=== PATIENT | male | born 1955 | race Caucasian/White ===

== ENCOUNTER 2016-10-24 15:30 | Inpatient (IN) | payer OTHER ==
[~2016-10-24] VITALS: Ht 182.9 cm; Wt 81.6 kg
--- NOTE | ~2016-10-24 | HC ---
[facility] [place] [address] CONSULTATION Name: PAYTON GONZALEZ Room #: 538-P ADM IN M.R.#: [id number] Admission: 10/24/16 Attend Phys: Lavon Torres Discharge: Date of : 59 Report #: [id number] THIS REPORT FOR: //name// CC: Denver Allen REASON FOR CONSULTATION: Was asked to evaluate concerning left great toe infection. HISTORY OF PRESENT ILLNESS: The patient was a 61-year-old with peripheral vascular disease and peripheral neuropathy, who noted increased pain and swelling along with erythema involving the distal aspect of his left first toe. He denies any specific trauma. He has had some oozing from beneath the nail. He does have onychomycosis. No fever, chills or sweats. Because of his increased pain, he was evaluated in the Emergency Room. There x-ray showed oblique ____ fracture of the proximal medial aspect of the distal phalanx to the great toe with osteoarthritis noted. No definite osteomyelitis. He had a previous history of MRSA infection of his right first and second toes several years ago. REVIEW OF SYSTEMS: Notes no cardiopulmonary, GI or complaints. ALLERGIES: None. MEDICATIONS: As noted on his MAR, which was reviewed including his vancomycin. PAST MEDICAL HISTORY: Coronary artery disease, status post [place] and stents, hypertension, peripheral neuropathy, peripheral vascular disease with right SFA stent, osteomyelitis of the right great toe MRSA. FAMILY HISTORY: Noncontributory. SOCIAL HISTORY: He is a smoker of cigarettes. No significant alcohol intake. PHYSICAL EXAMINATION: VITAL SIGNS: Afebrile, hemodynamically stable. GENERAL: He is alert and cooperative and pleasant, in no acute distress. HEENT: Unremarkable. CHEST: Clear. HEART: Regular. ABDOMEN: Soft. EXTREMITIES: Pulses in the left foot were normal. Sensation was diminished distally. Distally, he had some hyperesthesia involving his toes. SKIN: Evidence of onychomycosis. The left first toenail was a thickened and bit raise. There was some debris beneath the nail with evidence of some dry crusted drainage. Erythema extending from the distal most aspect of the toe to the mid shaft region. Yesterday, he reported that the erythema extended up into his foot. There was significant tenderness to this region. There was [address] [address] CONSULTATION Name: PAYTON GONZALEZ Room #: 538-P [facility] IN .R.#: [id number] Admission: 10/24/16 Attend Phys: Lavon Torres Discharge: Date of : 59 Report #: [id number] reasonable capillary refill to the distal tissues. LABORATORY STUDIES: Hemoglobin 12.5, white count 8.5. Differential unremarkable, platelet count 170,000, sodium 138, potassium 3.3, bicarbonate 29, creatinine 0.9. Liver function test normal. Urinalysis unremarkable. MRSA screen is pending. Blood cultures are pending. IMPRESSION: Left first toe soft tissue infection and paronychia. I suspect with possible deep infection beneath the nail. I suspect he had trauma initiating this considering as a fracture of the medial proximal and distal phalanx. RECOMMENDATION: Continue both gram negative and MRSA coverage and have podiatry evaluate for debridement of the nail. <ELECTRONICALLY SIGNED> By: Nghia Allen MD 10/26/16 1027 1127 [id number] Nghia Allen MD /nt
--- NOTE | ~2016-10-24 | H ---
[facility] [place] [address] HISTORY AND PHYSICAL Name: PAYTON GONZALEZ Room #: 538-P ADM IN M.R.#: [id number] Admission: 10/24/16 Attend Phys: Lavon Torres Discharge: Date of : 59 Report #: [id number] THIS REPORT FOR: //name// CC: Denver Allen ATTENDING PHYSICIAN: Dr. Denver Allen. CHIEF COMPLAINT: Left big toe and foot swelling with redness. HISTORY OF PRESENT ILLNESS: The patient is a 61-year-old gentleman who presented to the emergency room with complaints of having left foot pain. The patient reports that his symptoms started the night before his presentation and had gotten worse. He initially started having some discomfort in his toenail. He noticed redness of the big toe, which had spread over his foot into his ankle. He was having increasing pain and discomfort. The patient does have a history of severe peripheral neuropathy for which he has been on high doses of morphine tablets. The patient also had a previous infection on his right foot requiring hospitalization with IV antibiotics for MRSA infection. The patient is currently admitted to the hospital and started on IV vancomycin. He denied having any fever or chills. PAST MEDICAL HISTORY: Significant for history of severe peripheral neuropathy, coronary artery disease, MRSA infection of the right foot, hypertension and osteomyelitis of the right great toe with MRSA in May 2014. PAST SURGICAL HISTORY: Coronary stent placement, tonsillectomy and peripheral vascular angioplasty. ALLERGIES: He is not known to be allergic to medications. MEDICATIONS: He was currently on was hydrocodone 10/325 one every 8 hours p.r.n., methadone 10 mg 3 times a day and lisinopril 20 mg daily, Plavix 75 mg daily, atorvastatin 80 mg daily, aspirin 81 mg daily. SOCIAL HISTORY: He does not smoke, does not drink alcohol. REVIEW OF SYSTEMS: He denied any chest pain, shortness of breath, cough, fever, nausea, vomiting, abdominal pain or any chills. PHYSICAL EXAMINATION: GENERAL: Pleasant elderly gentleman was resting in bed, did not appear to be in any distress. He was awake, alert, oriented to place and person. VITAL SIGNS: She was afebrile with temperature of 36.6, pulse of 54, respiratory rate 18, blood pressure 111/68, oxygen saturation 95%. HEENT: Skull was atraumatic. There was no pallor, no icterus. Mucosa was moist. NECK: Supple. [facility] [address] [place] [address] HISTORY AND PHYSICAL Name: PAYTON GONZALEZ Room #: 538-P [facility] IN [facility].#: [id number] Admission: 10/24/16 Attend Phys: Lavon Torres Discharge: Date of : 59 Report #: [id number] LUNGS: Clear to auscultation bilaterally with no wheezing or crackles. HEART: Heart sounds, first and second, normal. ABDOMEN: Soft, nontender, bowel sounds normally heard. EXTREMITIES: The patient had left great toe swelling with redness and there was deformity of the toenail and there was minimal edema of the dorsum of the foot, pedal pulses were 1+ symmetrical. LABORATORY DATA: On admission showed a white cell count of 8.5, hemoglobin 12.5 and a platelet count of 170. Electrolytes showed a sodium of 138, potassium 3.3, chloride 104, bicarbonate of 29, BUN of 10, creatinine of 0.9 and glucose was 141, total bilirubin of 0.5. Urine was evidence of trace blood was seen. X-ray of the big toe showed evidence of small oblique fracture of the distal phalanx of the great toe on the left side. There was evidence of osteoarthritis. ASSESSMENT: 1. Left big toe with foot cellulitis questionable secondary to methicillin-resistant staphylococcus aureus. 2. Severe peripheral neuropathy. 3. Chronic pain syndrome. 4. Coronary artery disease. 5. Hypertension. PLAN: Continue on current medications on the IV antibiotics, vancomycin and have infectious disease consultation. By: 1040 [id number] Mert Bustamante MD /nt
[2016-10-24 15:30] VITALS: BP 146/90
[~2016-10-24 15:30] MED LIST: ANTIBIOTIC; ASA81BEC PO; DAILY VITAMIN1 EAC5 PO; DOLOPHINE HCL5 MG PO; DULOXETINE HCL30 MG PO; FISH OIL 1,001000 M1 PO; HYDROCODON-ACE1 EAC5 PO; LIPITOR80 MG PO; LISINOPRIL20 MG PO; LISINOPRIL40 MG PO; LOPRESSOR50 PO; MEPILEX1 EACH TOP; METHADONE HCL 110 M1 PO; METHADONE HCL5 MG PO; METOPROLOL SUCC50 MG PO; OXYCONTIN40 MG PO; PLAVIX 75 MG TA75 M1 PO; POTASSIUM; POTASSIUM PO; STOOL SOFTENER100 M1 PO; TEGRETOL XR100 MG PO; VANCOMYCIN1.5 GM/150 IV
[2016-10-24 16:34] LABS: ABSOLUTE NEUTROPHILS 8.2 thou/uL (1.4-8.2); BASOPHILS 0.8 % (0.0-2.0); EOSINOPHILS 3.1 % (0.0-3.0); HEMATOCRIT 39.3 % (42.0-52.0); HEMOGLOBIN 13.5 gm/dL (14.0-18.0); LYMPHOCYTES 18.4 % (24.0-44.0); MCH 32.3 pg (26.0-34.0); MCHC 34.4 g/dL (28.0-37.0); MCV 93.8 fL (80.0-100.0); MONOCYTES 6.3 % (1.0-8.0); PLATELET COUNT 200 thou/uL (150-400); POLYS 71.4 % (36.0-66.0); RBC 4.19 mil/uL (4.50-6.00); RDW 13.9 % (10.5-14.5); WBC 11.5 thou/uL (4.0-11.0)
[2016-10-24 16:39] LABS: MANUAL DIFF NO
[2016-10-24 16:43] LABS: CALCIUM 8.9 mg/dL (8.5-10.1); CREATININE 0.9 mg/dL (0.7-1.3)
[2016-10-24 16:47] LABS: DIRECT BILIRUBIN 0.1 mg/dL (<0.1-0.3); TOTAL BILIRUBIN 0.7 mg/dL (<0.1-1.0); TOTAL PROTEIN 8.1 g/dL (6.4-8.2)
[2016-10-24 19:37] LABS: URINE BILIRUBIN NEGATIVE (Negative); URINE BLOOD TRACE (Negative); URINE COLOR YELLOW; URINE GLUCOSE-RANDOM* NEGATIVE (Negative); URINE KETONES NEGATIVE (Negative); URINE NITRITE NEGATIVE (Negative); URINE PROTEIN (DIPSTICK) NEGATIVE (Negative)
[2016-10-24 19:51] VITALS: BP 142/87
[2016-10-25 03:35] LABS: HEMATOCRIT 36.3 % (42.0-52.0); HEMOGLOBIN 12.5 gm/dL (14.0-18.0); MCHC 34.4 g/dL (28.0-37.0); MCV 93.1 fL (80.0-100.0); RBC 3.9 mil/uL (4.50-6.00); RDW 14.1 % (10.5-14.5); WBC 8.5 thou/uL (4.0-11.0)
[2016-10-25 03:44] LABS: ALBUMIN 3.3 g/dL (3.4-5.0); CALCIUM 8.1 mg/dL (8.5-10.1); CREATININE 0.9 mg/dL (0.7-1.3); POTASSIUM 3.3 mmol/L (3.5-5.1); TOTAL BILIRUBIN 0.5 mg/dL (<0.1-1.0); TOTAL PROTEIN 6.8 g/dL (6.4-8.2)
[2016-10-25 07:35] VITALS: BP 111/68
[2016-10-25 15:30] VITALS: BP 102/61
[2016-10-25 19:30] VITALS: BP 126/70
[2016-10-26 06:40] VITALS: BP 116/79
[2016-10-26 08:37] VITALS: BP 131/81
[2016-10-26 16:00] VITALS: BP 124/67
[2016-10-26 19:15] VITALS: BP 144/69
[2016-10-27] VITALS (7 sets, daily range): BP systolic 115–136; BP diastolic 68–70
[2016-10-27 07:19] LABS: CALCIUM 8.5 mg/dL (8.5-10.1); CREATININE 0.9 mg/dL (0.7-1.3); POTASSIUM 3.9 mmol/L (3.5-5.1)
[2016-10-27] MEDS ORDERED: CUBICIN500 MG IVPB (09:26)
[2016-10-27] MEDS ORDERED: FLOMAX0.4 MG PO (09:26)
[2016-10-27] MEDS ORDERED: INVANZ1 G1 IV (09:55)
[2016-10-28] MEDS ORDERED: LOPRESSOR50 PO (10:04)
== END 2016-10-27 12:55 | disposition home health service (06) | DRG 603 ==
LOC: ER 15:30 → EROBS 17:35 → 5S 17:35
PROVIDERS: Internal Medicine Geriatric Medicine; Nurse Practitioner
PROC: 05H633Z Insertion of Infusion Device into Left Subclavian Vein, Percutaneous Approach (ICD-10-PCS; principal; 2016-10-26)
PROC: B547ZZA Ultrasonography of Left Subclavian Vein, Guidance (ICD-10-PCS; principal; 2016-10-26)
DX: L03.032 Cellulitis of left toe (principal); I10 Essential (primary) hypertension; F17.210 Nicotine dependence, cigarettes, uncomplicated; I73.9 Peripheral vascular disease, unspecified; G89.4 Chronic pain syndrome; I25.10 Atherosclerotic heart disease of native coronary artery without angina pectoris; G62.9 Polyneuropathy, unspecified; I25.2 Old myocardial infarction; Z95.5 Presence of coronary angioplasty implant and graft; Z79.899 Other long term (current) drug therapy; Z90.49 Acquired absence of other specified parts of digestive tract; Z86.14 Personal history of Methicillin resistant Staphylococcus aureus infection
CPT/HCPCS: 10086; 27001

== ENCOUNTER → 2016-10-28 | Outpatient (CLI) | payer OTHER ==
[~2016-10-28] MED LIST changes: +CUBICIN500 MG IVPB; +FLOMAX0.4 MG PO; +INVANZ1 G1 IV
[2016-10-28 09:00] VITALS: BP 126/71
== END ==
LOC: OPONC 06:57
DX: L03.116 Cellulitis of left lower limb (principal)
CPT/HCPCS: 95000

== ENCOUNTER → 2016-10-29 | Outpatient (CLI) | payer OTHER ==
[2016-10-29 10:00] VITALS: BP 106/63
[2016-10-29 10:04] LABS: HEMATOCRIT 36.9 % (42.0-52.0); HEMOGLOBIN 12.8 gm/dL (14.0-18.0); MCH 32.5 pg (26.0-34.0); MCHC 34.8 g/dL (28.0-37.0); MCV 93.5 fL (80.0-100.0); RBC 3.94 mil/uL (4.50-6.00); RDW 13.8 % (10.5-14.5); WBC 8.2 thou/uL (4.0-11.0)
[2016-10-29 10:17] LABS: CALCIUM 8.3 mg/dL (8.5-10.1); POTASSIUM 3.6 mmol/L (3.5-5.1)
== END ==
LOC: OPONC 06:17
PROVIDERS: Specialist
DX: L03.116 Cellulitis of left lower limb (principal)
CPT/HCPCS: 95000

== ENCOUNTER → 2016-10-30 | Outpatient (CLI) | payer OTHER ==
[2016-10-30 10:47] VITALS: BP 124/64
== END ==
LOC: OPONC 06:17
DX: L03.116 Cellulitis of left lower limb (principal)
CPT/HCPCS: 95000

== ENCOUNTER → 2016-10-31 | Outpatient (CLI) | payer OTHER ==
[~2016-10-31] MED LIST changes: +AUGMENTIN 875875 MG PO
== END ==
LOC: OPONC 10-29 08:36
DX: L03.116 Cellulitis of left lower limb (principal)
CPT/HCPCS: 95000

== ENCOUNTER → 2016-11-01 | Outpatient (CLI) | payer OTHER | LOC: OPONC 09:50 | DX: L03.116 Cellulitis of left lower limb (principal) | CPT/HCPCS: 95000 ==

== ENCOUNTER → 2016-11-02 | Outpatient (CLI) | payer OTHER | LOC: OPONC 12:45 | DX: L03.116 Cellulitis of left lower limb (principal) | CPT/HCPCS: 95000 ==

== ENCOUNTER → 2016-11-03 | Outpatient (CLI) | payer OTHER ==
[2016-11-03 09:33] LABS: HEMATOCRIT 38.8 % (42.0-52.0); HEMOGLOBIN 13.2 gm/dL (14.0-18.0); MCH 31.7 pg (26.0-34.0); MCHC 33.9 g/dL (28.0-37.0); MCV 93.6 fL (80.0-100.0); RBC 4.14 mil/uL (4.50-6.00); RDW 13.8 % (10.5-14.5); WBC 8.7 thou/uL (4.0-11.0)
[2016-11-03 09:54] LABS: ALBUMIN 3.7 g/dL (3.4-5.0); CALCIUM 8.7 mg/dL (8.5-10.1); POTASSIUM 3.7 mmol/L (3.5-5.1); TOTAL BILIRUBIN 0.4 mg/dL (<0.1-1.0); TOTAL PROTEIN 7.5 g/dL (6.4-8.2)
[2016-11-03 10:10] VITALS: BP 134/65
== END ==
LOC: OPONC 06:24
PROVIDERS: Specialist
DX: L03.116 Cellulitis of left lower limb (principal)
CPT/HCPCS: 95000

== ENCOUNTER → 2016-11-05 | Outpatient (CLI) | payer OTHER ==
[2016-11-05 09:32] VITALS: BP 119/68
== END ==
LOC: OPONC 11-04 12:56
DX: L03.116 Cellulitis of left lower limb (principal)
CPT/HCPCS: 95000

== ENCOUNTER → 2017-10-11 | Outpatient (CLI) | payer OTHER ==
[~2017-10-11] VITALS: Ht 182.9 cm; Wt 98.5 kg
[~2017-10-11] MED LIST changes: +CYMBALTA60 MG PO; -DULOXETINE HCL30 MG PO; +LOPRESSOR25 PO; +MS CONTIN 60 MG60 MG PO; +OXYCODONE HCL10 MG PO; +VITAMIN B-12500 MCG PO; +VITAMIN C + RO500 MG PO
--- NOTE | ~2017-10-11 | HPC ---
[facility] [place] [address] PAIN MANAGEMENT CONSULTATION Name: PAYTON GONZALEZ Reynaldo Room #: REG PIPER Casey.#: [id number] Admission: 10/11/17 Attend Phys: Alex Harley MD Discharge: Date of : 59 Report #: [id number] THIS REPORT FOR: //name// CC: Alli Harley Followup visit for chronic bilateral lower extremity pain. Diffuse idiopathic peripheral polyneuropathy. The patient returns to pain clinic today. He was last seen in my clinic 2 years ago. He has been following with Dr. Alli Allen. Dr. Allen provides him with opioid medications with the written agreement. His current daily dose is oxycodone 10 mg tablet taken every 6 hours for breakthrough, typically all 4 tablets daily are taken. He takes a baseline of MS Contin 60 mg 3 times daily. He has been on opioids for some time. He was initially seen in my clinic in 2013. At that time, he was on OxyContin 40 mg 3 times daily as well as hydrocodone 20 mg 4 times daily. His morphine milligram equivalents therefore were just slightly higher at that time. He has been around 240-260 MME since I first met him. He reports that Dr. Allen is prescribing his medications carefully to him for his pain, and it has been helpful in reducing score sometimes to as low as a 4/10. He may even have days where the pain is so low that he hardly feels it. The majority of the time, however, the pain is fairly severe affecting his day-to-day function. His functional assessment tool scored at 46/70. He reported to me several activities that are difficult for him. He has foregone several family activities recently. He took an early custodial due to his pain. He is currently disabled. He reports that he gets out once a week, goes to [employer]. He is a converted Sikhism. He has multiple family activities. His 's family is large. During most days, he reads, watches TV and occasionally feels well enough to do some lawn work. He has periodic bouts of depression, which he believes are related to his inactivity related to his pain, and he takes Cymbalta for that. His habits are poor. He does not exercise. He eats okay and kept his weight down, but he continues to smoke 1 pack every 3 days. Denies use of tobacco. He describes his overall pain intensity is a 4. It is a deep aching, burning sensation. It radiates down into both feet. There is a stocking distribution. MEDICATIONS: MS Contin 60 mg t.i.d., metoprolol 25 mg daily, multivitamins, atorvastatin 80 mg daily, Cymbalta 60 mg daily, ascorbic acid daily, vitamin B12, tamsulosin and oxycodone 10 mg 4 times daily p.r.n. [address] [address] PAIN MANAGEMENT CONSULTATION Name: LISAPAYTON Reynaldo Room #: REG Yan [place]#: [id number] Admission: 10/11/17 Attend Phys: Alex Harley MD Discharge: Date of : 59 Report #: [id number] ALLERGIES: None. PAST MEDICAL HISTORY: Significant for acute posterior inferior SC in 2004, status post placement of drug-eluting stents. He has hyperlipidemia, hypertension and a history of the idiopathic neuropathy. REVIEW OF SYSTEMS: Negative for constipation or other opioid related side effects. His primary complaints are pain. Denies shortness of breath, but does have dyspnea on exertion. PHYSICAL EXAMINATION: GENERAL: The patient is a pleasant gentleman, does not appear overmedicated. He is mildly depressed of affect. VITAL SIGNS: His blood pressure is 138/74, heart rate 53, respirations 16. His BMI is 29.5. NEUROLOGIC: He is able to move from sitting to standing position and ambulate without much difficulty. He has bilateral discomfort to light to moderate touch of the calf, tibial region, feet and ankles. There is no allodynia. He has decreased sensation bilaterally in the L5-S1 distribution of the feet. CHEST: Clear. CARDIAC: Rhythm is regular. Breathes easily. IMPRESSION: Bilateral lower extremity peripheral neuropathy. RECOMMENDATIONS: I had a long discussion with him today about the CDC guidelines and reviewed with him his morphine mg equivalency dose at 240 MME. We talked about concerns for patients who are above 90 morphine milligram equivalents. We discussed the possibility of tapering his medication with Dr. Allen. He may be a candidate for injection or interventional treatments. Because of the location of his pain, I would consider a trial of spinal cord stimulation at least a worthwhile endeavor. Spinal cord stimulation has been used broadly more for central problems; however, we have some patients who have presented with improvement following stimulation for peripheral neuropathy. The goal will be of course to taper his opioids into a more reasonable level. I have shared with him concerns about the patients who are at high dose. In our practice, we are concerned about transitioning those patients to another doctor when the time comes. Dr. Allen is currently providing these medicines, but I am not sure anyone can guarantee the patient that he will find another physician who prescribe at these levels. For the record, "I believe that Dr. Allen has provided these medications very appropriately, ethically and under terms of the opioid agreement established. I simply think that trying to find ways to reduce his reliance on opioids would be in his best interest at this point. [facility] [address] [place] [address] PAIN MANAGEMENT CONSULTATION Name: PAYTON GONZALEZ Room #: REG PIPER [place]#: [id number] Admission: 10/11/17 Attend Phys: Alex Harley MD Discharge: Date of : 59 Report #: [id number] Questions were asked and answered. 30-minute consultation. By: 1234 1421 Alex Harley MD /nt
[2017-10-11 09:57] VITALS: BP 138/74
== END ==
LOC: PAIN 05:28
DX: G62.89 Other specified polyneuropathies (principal); E78.5 Hyperlipidemia, unspecified; I10 Essential (primary) hypertension